=== PATIENT | male | born 1990 | race African-American/Black ===

== ENCOUNTER 2019-03-05 00:15 | Emergency (ER) | payer OTHER ==
[~2019-03-05] VITALS: Ht 188 cm; Wt 86.2 kg
[2019-03-05 00:25] VITALS: BP 123/81
--- NOTE | 2019-03-05 00:28 | NUR ---
TO LOBBY A/W BED, AMBULATORY , NO BLEEDING AT THIS TIME
--- NOTE | 2019-03-05 01:05 | NUR ---
PT AMBULATED TO ER BED 7
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
[2019-03-05] MEDS ORDERED: LIDOCAINE 1% 500 MG/50 ML VIAL INJ SCH (01:35)
[2019-03-05] MEDS ORDERED: LIDOCAINE MPF 1% - 5 mL VIAL 5 ML ONE (02:11)
--- NOTE | 2019-03-05 02:45 | NUR ---
DR ALBRECHT AT BEDSIDE, SUTURING PATIENT'S UPPER LIP LACERATION
[2019-03-05 03:11] VITALS: BP 123/81
--- NOTE | 2019-03-05 03:12 | NUR ---
Patient discharged with v/s stable. Written and verbal after care instructions given and explained. Patient alert, oriented and verbalized understanding of instructions. Ambulatory with steady gait. All questions addressed prior to discharge. ID band removed. Patient advised to follow up with PMD. Rx of NORCO AND KEFLEX given. Patient educated on indication of medication including possible reaction and side effects. Opportunity to ask questions provided and answered.
== END 2019-03-05 03:12 | disposition home or self-care (01) ==
LOC: MED 00:15
DX: S01.511A Laceration without foreign body of lip, initial encounter (principal); W22.8XXA Striking against or struck by other objects, initial encounter; Y93.89 Activity, other specified; Y92.89 Other specified places as the place of occurrence of the external cause; Y99.8 Other external cause status
CPT/HCPCS: 99283; J2001